=== PATIENT | male | born 1990 | race Two or more races ===

== ENCOUNTER 2022-04-19 09:56 | Emergency (ER) | payer SELFPAY ==
[~2022-04-19] VITALS: Ht 170.2 cm; Wt 87.1 kg
[~2022-04-19 09:56] MED LIST: DIPH25CA83 PO
--- NOTE | 2022-04-19 10:15 | NUR ---
at [facility] [place]
--- NOTE | 2022-04-19 12:03 | NUR ---
BIB RA RA WALKING,C/O DIZZINESS WHILE DRIVING, CHEST PAIN SINCE 0600
[2022-04-19 12:04] VITALS: BP 130/69
--- NOTE | 2022-04-19 12:04 | NUR ---
Patient discharged to home in stable condition. Written and verbal after care instructions given. Patient verbalizes understanding of instruction.
== END 2022-04-19 12:05 | disposition home or self-care (01) ==
LOC: ER 09:58
DX: R07.89 Other chest pain (principal); I10 Essential (primary) hypertension; F41.9 Anxiety disorder, unspecified; Z60.2 Problems related to living alone
CPT/HCPCS: 71045-TC; 82962-TC